=== PATIENT | female | born 1935 | race Caucasian/White ===

== ENCOUNTER 2019-01-21 08:35 | Emergency (ER) | payer OTHER ==
[~2019-01-21] VITALS: Ht 152.4 cm; Wt 60.9 kg
[2019-01-21 08:40] VITALS: Ht 152.4 cm; Wt 60.9 kg
[2019-01-21] MEDS ORDERED: SOD CHLORIDE 0.9% 1,000 ML IV STA (09:13)
[2019-01-21] MEDS ORDERED: ONDANSETRON 4 MG INJ IV STA (09:13)
[2019-01-21] MEDS ORDERED: morphine 2 MG INJ IV STA (09:13)
[2019-01-21 11:38] VITALS: BP 137/65; PULSE 78; RESP 20
--- NOTE | 2019-01-21 11:54 | ERD ---
ER Documentation Chief Complaint Chief Complaint SWELLLING @ LEFT KNEE HPI This is an 83-year-old female that presents to the emergency department with left knee pain. Her family indicates that several weeks ago she did have a mechanical fall. She landed on a flexed left knee. Since that time she is been complaining of left knee pain with ambulation. They noticed some swelling. They also indicate that the patient had a decrease in appetite. To have mild frequency urgency dysuria. She said no chest pain. She said no shortness of breath. She has not experience any hematuria. She denies a headache. She said no neck pain. ROS All systems reviewed and are negative except as per history of present illness. 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 Well-nourished. HEENT:Normocephalic. Atraumatic.Pupils were equal round reactive to light. Moist mucous membranes.No tonsillar exudates. Neck: No nuchal rigidity. No lymphadenopathy. No posterior cervical spine tenderness or step-offs. Respiratory: Not using accessory muscles of respiration.Lungs were clear to auscultation bilaterally. No rhonchi. No rales. No wheezing. Cardiovascular: Regular rate regular rhythm.No murmurs. No rubs were appreciated.S1, S2 normal. Distal pulses are palpable 2+ bilaterally. GI: Abdomen was soft. Nontender. Non Distended. No pulsatile abdominal masses or bruits. No rebound. No guarding. Bowel sounds were present and normal. Muscle skeletal: Full range of motion of both the upper and lower extremities bilaterally.Normal muscle tone.tenderness over the left patella with mild soft tissue swelling. No ecchymosis. No laxity on valgus or varus stress testing of the left to the right knee. No assymetrical calf tenderness or swelling. Skin: No petechia, no purpura. No lesions on the palms or the soles of the feet. No maculopapular rash. NEURO: Patient was alert, awake, orientated x3.No facial droop. Gait observed and normal with no ataxia.Speech had regular rate and rhythm. No focal neurological deficits. Result Diagram: 01/21/19 0936 01/21/19 0936 Results 24 hrs Laboratory Tests Test 01/21/19 09:36 01/21/19 10:15 White Blood Count 6.8 10^3/ul Red Blood Count 4.71 10^6/ul Hemoglobin 13.8 g/dl Hematocrit 42.0 % Mean Corpuscular Volume 89.2 fl Mean Corpuscular Hemoglobin 29.3 pg Mean Corpuscular Hemoglobin Concent 32.9 g/dl Red Cell Distribution Width 13.6 % Platelet Count 282 10^3/UL Mean Platelet Volume 10.7 fl Immature Granulocytes % 0.600 % Neutrophils % 69.8 % Lymphocytes % 22.5 % Monocytes % 5.3 % Eosinophils % 1.2 % Basophils % 0.6 % Nucleated Red Blood Cells % 0.0 /100WBC Immature Granulocytes # 0.040 10^3/ul Neutrophils # 4.8 10^3/ul Lymphocytes # 1.5 10^3/ul Monocytes # 0.4 10^3/ul Eosinophils # 0.1 10^3/ul Basophils # 0.0 10^3/ul Nucleated Red Blood Cells # 0.0 10^3/ul Prothrombin Time 12.2 Sec Prothrombin Time Ratio 1.0 INR International Normalized Ratio 0.89 Activated Partial Thromboplast Time 30.3 Sec Sodium Level 142 mmol/L Potassium Level 4.1 mmol/L Chloride Level 107 mmol/L Carbon Dioxide Level 24 mmol/L Anion Gap 11 Blood Urea Nitrogen 11 mg/dl Creatinine 0.79 mg/dl Est Glomerular Filtrat Rate mL/min mL/min Glucose Level 146 mg/dl Calcium Level 9.6 mg/dl Total Bilirubin 0.7 mg/dl Direct Bilirubin 0.00 mg/dl Indirect Bilirubin 0.7 mg/dl Aspartate Amino Transf (AST/SGOT) 28 IU/L Alanine Aminotransferase (ALT/SGPT) 17 IU/L Alkaline Phosphatase 106 IU/L Total Protein 7.9 g/dl Albumin 4.3 g/dl Globulin 3.60 g/dl Albumin/Globulin Ratio 1.19 Urine Color YELLOW Urine Clarity CLOUDY Urine pH 7.0 Urine Specific [place] 1.003 Urine Ketones NEGATIVE mg/dL Urine Nitrite NEGATIVE mg/dL Urine Bilirubin NEGATIVE mg/dL Urine Urobilinogen NEGATIVE mg/dL Urine Leukocyte Esterase TRACE Dave/ul Urine Microscopic RBC 5 /HPF Urine Microscopic WBC 6 /HPF Urine Bacteria FEW /HPF Urine Yeast (Budding) FEW /HPF Urine Hemoglobin 1+ mg/dL Urine Glucose NEGATIVE mg/dL Urine Total Protein NEGATIVE mg/dl Current Medications Medications Dose Sig/Flynn Start Time Status Last (Trade) Ordered Route PRN Stop Time Admin Dose Reason Admin Sodium 1,000 ml @ Q1H STAT 01/21/19 DC 01/21/19 Chloride 1,000 mls/hr IV 09:13 09:36 01/21/19 10:12 Morphine 2 mg ONCE STAT 01/21/19 DC 01/21/19 Sulfate IV 09:13 09:36 (morphine) 01/21/19 09:23 Ondansetron 4 mg ONCE STAT 01/21/19 DC 01/21/19 HCl (Zofran IV 09:13 09:36 Inj) 01/21/19 09:23 Procedures/MDM This is an 83-year-old female that presented to the emergency department left knee pain. Utilizing the [place] ankle and knee rules radiographic imaging was obtained. There is no evidence of an underlying fracture. Daughters were concerned given that the patient in appetite. Urinalysis was suggestive of urinary tract infection. I did feel this was exacerbating the patient's symptoms. She had no severe left leg abnormalities. No evidence of myocardial ischemia. Patient I did feel safe to be discharged home with a prescription of antibiotics and follow-up with her primary care physician. An Jorge wrap for immobilization and comfort of the left knee and instructed to undergo rest ice compression and elevation. 12 Lead EKG tracing ordered and reviewed by myself showed: Normal sinus rhythm of 80 bpm and no arrhythmia. MO interval normal. Premature ventricular complexes QRS duration normal. No ST segment elevation No ST segment depression. No changes consistent with acute ischemia. The patient was discharged home in fair condition. They were instructed to return to the emergency department at any time if there was any worsening of their condition. The patient stated they would follow up with their PCP in the next 24-48 hours to initiate a suitable medication regimen under the care of their PCP as well as to allow their PCP to monitor any drug reactions. The patient was discharged home with prescriptions after they gave informed consent to the new medication. They were also fully informed by myself on the adverse effects and adverse drug interactions in order to provide adequate safeguards to prevent possible adverse reactions to medications. Departure Diagnosis: Primary Impression: Knee effusion, left Additional Impressions: Knee sprain Encounter type: initial encounter Involved ligament of knee: unspecified ligament Laterality: left Qualified Codes: S83.92XA - Sprain of unspecified site of left knee, initial encounter Urinary tract infection Urinary tract infection type: acute cystitis Hematuria presence: without hematuria Qualified Codes: N30.00 - Acute cystitis without hematuria Condition: LEVI Vieira MD January 21, 2019 11:54
[2019-01-21] MEDS ORDERED: CEPH-443 PO (11:55)
[2019-01-21] MEDS ORDERED: NAPR-985 PO (11:55)
[2019-01-21] MEDS ORDERED: DICL50TA11 PO (11:58)
[2019-01-21] MEDS ORDERED: AMLO5TAB4 PO (11:59)
[2019-01-21] MEDS ORDERED: MV M PO (12:01)
== END 2019-01-21 12:35 | disposition home or self-care (01) ==
LOC: E/R 08:35
DX: S83.92XA Sprain of unspecified site of left knee, initial encounter (principal); I10 Essential (primary) hypertension; M25.462 Effusion, left knee; N30.00 Acute cystitis without hematuria; W18.39XA Other fall on same level, initial encounter; Y92.9 Unspecified place or not applicable
CPT/HCPCS: 73562; 80053; 81001; 85025; 85610; 85730; 87086; 93005; 93971; 96374; 96375; J2270; J2405; J7030; Z7502